=== PATIENT | male | born 1980 ===

== ENCOUNTER 2017-01-07 11:57 | Emergency (ER) | payer SELFPAY ==
[~2017-01-07] VITALS: Ht 182.9 cm; Wt 104.3 kg
[2017-01-07 11:59] VITALS: BP 151/93
== END 2017-01-07 13:29 | disposition left against medical advice (07) ==
LOC: ED 11:57
DX: Z53.21 Procedure and treatment not carried out due to patient leaving prior to being seen by health care provider (principal)